=== PATIENT | male | born 1985 | race Two or more races ===

== ENCOUNTER 2019-11-04 18:22 | Emergency (ER) | payer SELFPAY ==
[~2019-11-04] VITALS: Ht 177.8 cm; Wt 102.1 kg
[2019-11-04] MEDS ORDERED: Haloperidol 5mg/ml Inj IM ONE (18:30)
[2019-11-04] MEDS ORDERED: DiphenhydrAMINE 50mg/ml Inj IVP ONE (18:30)
--- NOTE | 2019-11-04 18:33 | Emergency Room Report ---
History of Present Illness General Chief Complaint: Alcohol Intoxication Source: Patient, EMS Present Illness HPI Paramedics were summoned to a taco truck by the patient's friends. He was laying on the ground and they alleged that he had been drinking alcohol. There is no evidence of trauma. They claim his [place] Coma Scale was 15 although he refused to give his last name. Blood glucose was 118 in the field. Patient is not a cooperative and answering questions but is able to give his last name to us. He does not answer whether he has any pain or other complaints. Allergies: Coded Allergies: No Known Allergies (Unverified , 11/04/19) COVID-19 Screening Contact w/high risk pt: No Recent Travel to affected area: No Experienced COVID-19 symptoms?: No COVID-19 Testing performed FACILITIES TECHNICIAN: No Patient History Limited by: medical condition Past Medical History: see triage record Social History: Reports: alcohol use Social History Narrative Patient was at a taco truck with friends. Other history is unobtainable Reviewed Nursing Documentation: PMH: Agreed; PSxH: Agreed Review of Systems All Other Systems: limited Physical Exam Vital Signs Date Time Temp Pulse Resp B/P (MAP) Pulse Ox O2 Delivery O2 Flow Rate FiO2 11/04/19 18:19 99.0 100 16 123/77 (92) 98 Room Air Sp02 EP Interpretation: reviewed, normal General Appearance: well appearing, no apparent distress, other - Slurred words and ataxic Eyes: bilateral eye PERRL, bilateral eye EOMI, bilateral eye Scleral Injection ENT: moist mucus membranes - No lingual trauma Neck: full range of motion, supple, no bony tend Respiratory: lungs clear, normal breath sounds Cardiovascular #1: regular rate, rhythm, no edema Cardiovascular #2: 2+ radial (L) Gastrointestinal: normal inspection, non tender Genitourinary: no CVA tenderness Musculoskeletal: normal range of motion, digits/nails normal, moves extm spontaneously Neurologic: motor strength/tone normal, oriented - To self, sensory intact, other - Slurred speech and ataxic Psychiatric: other - Appears intoxicated but in no distress Skin: no rash, warm/dry Medical Decision Making Medical: Alcohol Abuse Reaction to Intervention: No change Restraint Reassesment I, Howard Chavarria MD, have personally evaluated this patient. Laboratory tests have been reviewed and addressed accordingly. The patient is deemed to possibly intoxicated and is unable to make rational decisions. This is based on the exam, history (EMS) and observed behavior. Attempts for non-invasive measures have been considered and/or attempted, however, have been futile. It is in the best interest of the patient, that non- behavioral restraints be applied. Patient evaluation reveals the following: pulling out IV, unable to stand without assistance, not listening to requests to lay on gurney and not pull out IV. Diagnostic Impression: Primary Impression: Acute alcoholic intoxication Qualified Codes: F10.929 - Alcohol use, unspecified with intoxication, unspecified ER Course Patient presents with altered level of consciousness and ataxia after allegedly drinking alcohol. There is no evidence of any head trauma at this time. Differential includes alcohol intoxication, electrolyte imbalance, other toxic ingestions. Patient evaluated with labs. Patient treated with IV hydration. Patient placed on registered nurse cardiac telemetry. Patient noncompliant and unsteady on his feet. A small dose of sedation given to the patient until he is able to ambulate and make decisions. 183 Patient resting and out of restraints. BA high. Hydration and continued observation. Sleeping. Signed out to Dr. Moran. Laboratory Tests Test 11/04/19 18:25 White Blood Count 8.1 K/UL (4.8-10.8) Red Blood Count 5.32 M/UL (4.70-6.10) Hemoglobin 16.1 G/DL (14.2-18.0) Hematocrit 50.7 % (42.0-52.0) Mean Corpuscular Volume 95 FL (80-99) Mean Corpuscular Hemoglobin 30.3 PG (27.0-31.0) Mean Corpuscular Hemoglobin Concent 31.8 G/DL (32.0-36.0) L Red Cell Distribution Width 13.4 % (11.6-14.8) Platelet Count 227 K/UL (150-450) Mean Platelet Volume 10.2 FL (6.5-10.1) H Neutrophils (%) (Auto) 54.8 % (45.0-75.0) Lymphocytes (%) (Auto) 31.8 % (20.0-45.0) Monocytes (%) (Auto) 12.0 % (1.0-10.0) H Eosinophils (%) (Auto) 0.2 % (0.0-3.0) Basophils (%) (Auto) 1.2 % (0.0-2.0) Sodium Level 143 MMOL/L (136-145) Potassium Level 3.7 MMOL/L (3.5-5.1) Chloride Level 107 MMOL/L (98-107) Carbon Dioxide Level 22 MMOL/L (21-32) Anion Gap 14 mmol/L (5-15) Blood Urea Nitrogen 11 mg/dL (7-18) Creatinine 1.5 MG/DL (0.55-1.30) H Estimated Glomerular Filtration Rate 53.3 mL/min (>60) Glucose Level 135 MG/DL (74-106) H Calcium Level 8.0 MG/DL (8.5-10.1) L Total Bilirubin 0.1 MG/DL (0.2-1.0) L Aspartate Amino Transferase (AST) 8 U/L (15-37) L Alanine Aminotransferase (ALT) 19 U/L (12-78) Alkaline Phosphatase 93 U/L (46-116) Total Creatine Kinase 284 U/L (26-308) Total Protein 8.7 G/DL (6.4-8.2) H Albumin 4.1 G/DL (3.4-5.0) Globulin 4.6 g/dL Albumin/Globulin Ratio 0.9 (1.0-2.7) L Salicylates Level 1.0 ug/mL (2.8-20) L Acetaminophen Level < 2 MCG/ML (10-30) L Serum Alcohol 392 mg/dL Rhythm Strip Diag. Results EP Interpretation: yes Rhythm: NSR, no PVC's, no ectopy Last Vital Signs Date Time Temp Pulse Resp B/P (MAP) Pulse Ox O2 Delivery O2 Flow Rate FiO2 11/05/19 00:06 98.7 73 16 118/84 98 Room Air Status: improved Disposition: HOME, SELF-CARE Condition: Improved Howard Chavarria MD Nov 04, 2019 18:33
--- NOTE | 2019-11-04 18:40 | NUR ---
ED Nurse Note: Recieved pt BIBA from streets with c/o ETOH abuse, pt is awake and alert, disoriented and makes non-comprehensible sounds attempting to verbally speak, pt is non-cooperative but laughing, has patent saline lock in left hand, will resume care as ordered, no visible shaking, diaphoresis or s/s of any respiratory distress, will resume care as ordered and continue to closely monitor.
[2019-11-04 18:59] LABS: ANION GAP 14 mmol/L (5-15); BLOOD UREA NITROGEN 11 mg/dL (7-18); CARBON DIOXIDE 22 MMOL/L (21-32); CHLORIDE 107 MMOL/L (98-107); CREATININE 1.5 MG/DL (0.55-1.30); POTASSIUM 3.7 MMOL/L (3.5-5.1); SODIUM 143 MMOL/L (136-145)
[2019-11-04 19:01] LABS: BASOPHILS % (AUTO) 1.2 % (0.0-2.0); EOSINOPHILS % (AUTO) 0.2 % (0.0-3.0); HEMATOCRIT 50.7 % (42.0-52.0); HEMOGLOBIN 16.1 G/DL (14.2-18.0); LYMPHOCYTES % (AUTO) 31.8 % (20.0-45.0); MEAN CORPUSCULAR VOLUME 95 FL (80-99); NEUTROPHILS % (AUTO) 54.8 % (45.0-75.0); PLATELET COUNT 227 K/UL (150-450); RED BLOOD COUNT 5.32 M/UL (4.70-6.10); RED CELL DISTRIBUTION WIDTH 13.4 % (11.6-14.8); WHITE BLOOD COUNT 8.1 K/UL (4.8-10.8)
[2019-11-04 19:05] LABS: ALANINE AMINOTRANSFERASE 19 U/L (12-78); ALBUMIN 4.1 G/DL (3.4-5.0); ALBUMIN/GLOBULIN RATIO 0.9 (1.0-2.7); ALKALINE PHOSPHATASE 93 U/L (46-116); ASPARTATE AMINO TRANSFERASE 8 U/L (15-37); BILIRUBIN,TOTAL 0.1 MG/DL (0.2-1.0); CREATINE KINASE 284 U/L (26-308)
[2019-11-04 20:01] VITALS: BP 115/97
--- NOTE | 2019-11-04 20:54 | NUR ---
HAND-OFF: Report given to RAHEL NAVARRO.
--- NOTE | 2019-11-04 20:55 | NUR ---
ED Nurse Note: pt placed in TX 1. Pt removed IV from left hand. New IV line initiated, see interventions. All medications administered, pt tolerated well, pt sleeping in bed, no ss of distress noted.
--- NOTE | 2019-11-04 22:11 | NUR ---
ED Nurse Note: Pt sleeping in bed, VSS no ss of distress noted. will continue to monitor
--- NOTE | 2019-11-04 22:18 | NUR ---
ED Nurse Note: UA sent to lab
[2019-11-04 22:45] VITALS: BP 125/95
--- NOTE | 2019-11-05 00:05 | NUR ---
ED Nurse Note: pt sleeping in bed. VSS no ss of distress noted.
[2019-11-05 00:06] VITALS: BP 118/84
[2019-11-05 02:22] VITALS: BP 122/86
--- NOTE | 2019-11-05 02:22 | NUR ---
ED Nurse Note: pt sleeping, vss no ss of distress noted.
[2019-11-05 04:56] VITALS: BP 119/76
--- NOTE | 2019-11-05 04:56 | NUR ---
ED Nurse Note: pt sleeping, vss no ss of distress noted.
--- NOTE | 2019-11-05 05:20 | NUR ---
ED Nurse Note: pt awake, aao x 4, ambulatory with steady gait. Pt oriented to time and place and reason for hospital visit. Pt verbalized understanding.
[2019-11-05 05:45] VITALS: BP 126/82
--- NOTE | 2019-11-05 05:45 | NUR ---
ER DISCHARGE NOTE: Patient is cleared to be discharged home per ERMD, pt is aox4, 99% on room air, with stable vital signs. pt was given dc instructions, pt was able to verbalize understanding, pt id band removed. pt is able to ambulate with steady gait. pt took all belongings.
== END 2019-11-05 05:45 | disposition home or self-care (01) ==
LOC: EMR 19:29
DX: F10.129 Alcohol abuse with intoxication, unspecified (principal)
CPT/HCPCS: 36415; 80053; 80307; 82550; 85025; 96361; 96372; 96374; 99284; G0480; J1200; J1630; J7030